=== PATIENT | male | born 1960 | race Caucasian/White ===

== ENCOUNTER → 2016-10-03 | Outpatient (CLI) | payer OTHER ==
[~2016-10-03] MED LIST: CRESTOR10 MG PO; LISINOPRIL5 MG PO; MORPHINE SULFAT60 M2 PO; NEURONTIN300 MG PO
[2016-10-04 17:07] LABS: CREATININE, UR 283.7 mg/dL (20.0-300.0); PH URINE 5.1 (4.5-8.9); PHENCYCLIDINE, URINE Negative ng/mL (Cutoff=25)
[2016-10-05 00:04] LABS: AMPHETAMINE, URINE Negative ng/mL (Cutoff=1000); BENZODIAZEPINES Negative ng/mL (Cutoff=200); COCAINE, URINE Negative ng/mL (Cutoff=300); FENTANYL, URINE Negative pg/mL (Cutoff=2000); METHADONE, URINE Negative ng/mL (Cutoff=300); OXYCODONE SCREEN URINE Negative ng/mL (Cutoff=100); PROPOXYPHENE OR METABOLITE Negative ng/mL (Cutoff=300); PROPOXYPHENE SCREEN, URINE Negative ng/mL (Cutoff=300)
== END | disposition home or self-care (01) ==
LOC: LAB 08:48
PROVIDERS: Physical Medicine & Rehabilitation
DX: M51.16 Intervertebral disc disorders with radiculopathy, lumbar region (principal); M51.26 Other intervertebral disc displacement, lumbar region; M54.5 Low back pain; Z79.891 Long term (current) use of opiate analgesic; Z79.899 Other long term (current) drug therapy

== ENCOUNTER → 2017-01-29 | Outpatient (CLI) | payer OTHER ==
[2017-01-30 18:09] LABS: AMPHETAMINE, URINE Negative ng/mL (Cutoff=1000); BENZODIAZEPINES Negative ng/mL (Cutoff=200); COCAINE, URINE Negative ng/mL (Cutoff=300); CREATININE, UR 276.5 mg/dL (20.0-300.0); FENTANYL, URINE Negative pg/mL (Cutoff=2000); METHADONE, URINE Negative ng/mL (Cutoff=300); PH URINE 5.2 (4.5-8.9); PHENCYCLIDINE, URINE Negative ng/mL (Cutoff=25); PROPOXYPHENE OR METABOLITE Negative ng/mL (Cutoff=300)
[2017-01-31 07:06] LABS: TAPENTADOL, URINE Negative ng/mL (Cutoff=200)
== END | disposition home or self-care (01) ==
LOC: LAB 08:42
PROVIDERS: Pain Medicine Pain Medicine
DX: M51.26 Other intervertebral disc displacement, lumbar region (principal); M51.16 Intervertebral disc disorders with radiculopathy, lumbar region; Z79.899 Other long term (current) drug therapy; Z79.891 Long term (current) use of opiate analgesic

== ENCOUNTER → 2017-05-29 | Outpatient (CLI) | payer OTHER ==
[2017-05-31 14:07] LABS: AMPHETAMINE, URINE Negative ng/mL (Cutoff=1000); BARBITURATE, URINE Negative ng/mL (Cutoff=200); CANNABINOID, URINE Negative ng/mL (Cutoff=20); CREATININE, UR 66.7 mg/dL (20.0-300.0); PH URINE 4.9 (4.5-8.9)
== END | disposition home or self-care (01) ==
LOC: LAB 10:18
PROVIDERS: Pain Medicine Pain Medicine
DX: M51.16 Intervertebral disc disorders with radiculopathy, lumbar region (principal); M51.26 Other intervertebral disc displacement, lumbar region; Z79.891 Long term (current) use of opiate analgesic; Z79.899 Other long term (current) drug therapy

== ENCOUNTER → 2017-10-02 | Outpatient (CLI) | payer OTHER ==
[2017-10-03 16:09] LABS: AMPHETAMINE, URINE Negative ng/mL (Cutoff=1000); BARBITURATE, URINE Negative ng/mL (Cutoff=200); CANNABINOID, URINE Negative ng/mL (Cutoff=20); CREATININE, UR 143.9 mg/dL (20.0-300.0); PH URINE 6.9 (4.5-8.9)
== END | disposition home or self-care (01) ==
LOC: LAB 14:44
PROVIDERS: Anesthesiology
DX: M51.16 Intervertebral disc disorders with radiculopathy, lumbar region (principal); M51.26 Other intervertebral disc displacement, lumbar region; Z79.899 Other long term (current) drug therapy; Z79.891 Long term (current) use of opiate analgesic

== ENCOUNTER → 2018-03-25 | Outpatient (CLI) | payer OTHER ==
[2018-03-26 19:02] LABS: BARBITURATE, URINE Negative ng/mL (Cutoff=200); CANNABINOID, URINE Negative ng/mL (Cutoff=20); CREATININE, UR 118.8 mg/dL (20.0-300.0); PH URINE 5.1 (4.5-8.9)
[2018-03-28 20:06] LABS: CODEINE, URINE Negative (Cutoff=100)
== END | disposition home or self-care (01) ==
LOC: LAB 08:48
PROVIDERS: Pain Medicine Pain Medicine
DX: M51.16 Intervertebral disc disorders with radiculopathy, lumbar region (principal); M51.26 Other intervertebral disc displacement, lumbar region; Z79.891 Long term (current) use of opiate analgesic; Z79.899 Other long term (current) drug therapy

== ENCOUNTER → 2018-07-26 | Outpatient (CLI) | payer OTHER ==
[2018-07-27 17:08] LABS: BARBITURATE, URINE Negative ng/mL (Cutoff=200); CANNABINOID, URINE Negative ng/mL (Cutoff=20); CREATININE, UR 51.2 mg/dL (20.0-300.0); PH URINE 5.5 (4.5-8.9)
[2018-07-31 18:05] LABS: CODEINE, URINE Negative (Cutoff=100)
== END | disposition home or self-care (01) ==
LOC: LAB 08:47
PROVIDERS: Pain Medicine Pain Medicine
DX: M51.16 Intervertebral disc disorders with radiculopathy, lumbar region (principal); Z79.899 Other long term (current) drug therapy; Z79.891 Long term (current) use of opiate analgesic

== ENCOUNTER → 2019-04-21 | Outpatient (CLI) | payer OTHER ==
[2019-04-22 18:09] LABS: BARBITURATE, URINE Negative ng/mL (Cutoff=200); CANNABINOID, URINE Negative ng/mL (Cutoff=20); CREATININE, UR 29.9 mg/dL (20.0-300.0); PH URINE 5.7 (4.5-8.9)
[2019-04-24 18:09] LABS: CODEINE, URINE Negative (Cutoff=100)
== END | disposition home or self-care (01) ==
LOC: LAB 08:45
PROVIDERS: Pain Medicine Pain Medicine
DX: M54.5 Low back pain (principal); M51.16 Intervertebral disc disorders with radiculopathy, lumbar region; Z79.891 Long term (current) use of opiate analgesic; Z79.899 Other long term (current) drug therapy

== ENCOUNTER → 2021-02-22 | Outpatient (CLI) | payer OTHER ==
[2021-02-22 11:55] LABS: BUN 9 mg/dl (7-24); CHLORIDE 105 mmol/L (98-107); CHOLESTEROL 131 mg/dL (<200); CREATININE 1.02 mg/dL (0.70-1.30); POTASSIUM 4.2 mmol/L (3.5-5.1); SODIUM 140 mmol/L (136-145); TRIGLYCERIDES 102 mg/dl (<150)
[2021-02-22 11:56] LABS: LDL CHOLESTEROL 66 mg/dL (9-159)
== END | disposition home or self-care (01) ==
LOC: LAB 11:05
PROVIDERS: ATTEND Family Medicine
DX: I10 Essential (primary) hypertension (principal); E78.2 Mixed hyperlipidemia

== ENCOUNTER → 2022-11-15 | Outpatient (CLI) | payer OTHER ==
[2022-11-15 17:39] LABS: BUN 13 mg/dl (9-23); CHLORIDE 106 mmol/L (98-107); POTASSIUM 4.1 mmol/L (3.4-5.1)
== END | disposition home or self-care (01) ==
LOC: LAB 16:34
PROVIDERS: ATTEND Physician Assistant
DX: M54.16 Radiculopathy, lumbar region (principal)